=== PATIENT | female | born 1985 | race Caucasian/White ===

== ENCOUNTER 2021-08-11 11:56 | Emergency (ER) | payer OTHER, SELFPAY ==
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
[2021-08-11 11:58] VITALS: BP 113/70; PULSE 85; RESP 16; TEMP 36.5; O2SAT 99
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
[2021-08-11] MEDS: IBUPROFEN 600 MG TABLET PO (13:05)
[2021-08-11] MEDS: CYCLOBENZAPRINE HCL 10 MG TABLET PO (13:06)
[2021-08-11 13:10] VITALS: BP 126/74; PULSE 80; RESP 16; O2SAT 99
== END 2021-08-11 13:11 | disposition home or self-care (01) ==
PROVIDERS: Emergency Provider Nurse Practitioner Family
DX: R51.9 Headache, unspecified (principal); V43.52XA Car driver injured in collision with other type car in traffic accident, initial encounter
CPT/HCPCS: 70450; 72125; 81025; 99284; A9270